=== PATIENT | female | born 1965 | race Caucasian/White ===

== ENCOUNTER → 2016-07-19 | Outpatient (CLI) | payer OTHER ==
[~2016-07-19] MED LIST: KLONOPIN0.5 M1 PO; LEXAPRO10 MG PO; NORCO 5/3251 TABLET PO; RISPERDAL2 MG PO; SYMBICORT60 INHALA1 IH
== END | disposition home or self-care (01) ==
LOC: CDC 13:37
DX: R94.31 Abnormal electrocardiogram [ECG] [EKG] (principal); C50.911 Malignant neoplasm of unspecified site of right female breast
CPT/HCPCS: 93000

== ENCOUNTER 2016-08-08 06:15 | Day surgery (SDC) | payer OTHER ==
[~2016-08-08] VITALS: Ht 167.6 cm; Wt 81.7 kg
[~2016-08-08 06:15] MED LIST changes: +FISH OIL 1,2001 EAC4 PO; +PRILOSEC20 MG PO; +PROBIOTIC1 EAC3 PO; +SYMBICORT60 INHALAT IH
[2016-08-08 07:43] VITALS: BP 132/79
[2016-08-08 07:59] VITALS: BP 132/79
[2016-08-08 15:50] VITALS: BP 129/76
[2016-08-08 18:19] VITALS: BP 139/78
== END 2016-08-08 18:22 | disposition home or self-care (01) ==
LOC: SDC 06:15 → NUC 08:00 → SDC 18:22
DX: C50.911 Malignant neoplasm of unspecified site of right female breast (principal); K21.9 Gastro-esophageal reflux disease without esophagitis; F41.9 Anxiety disorder, unspecified; J45.909 Unspecified asthma, uncomplicated
CPT/HCPCS: 78195; 78999; 88305; 88307; A9541; J1100; J1170; J2250; J2405; J2710; J3010; J7120; S0020

== ENCOUNTER 2017-08-06 16:24 | Emergency (ER) | payer OTHER ==
[~2017-08-06] VITALS: Ht 167.6 cm; Wt 80.3 kg
[2017-08-06] MEDS ORDERED: NOLVADEX20 MG PO (19:22)
[2017-08-06] MEDS ORDERED: MOTRIN600 MG PO (22:49)
[2017-08-06 22:54] VITALS: BP 132/76
== END 2017-08-06 22:54 | disposition home or self-care (01) ==
LOC: EME 16:24
DX: R09.89 Other specified symptoms and signs involving the circulatory and respiratory systems (principal); F41.9 Anxiety disorder, unspecified; J45.909 Unspecified asthma, uncomplicated; K21.9 Gastro-esophageal reflux disease without esophagitis; Z85.3 Personal history of malignant neoplasm of breast; Z88.0 Allergy status to penicillin
CPT/HCPCS: 70360; 99281; 99284